=== PATIENT | female | born 1985 | race Two or more races ===

== ENCOUNTER 2016-12-24 15:58 | Observation (INO) | payer BC ==
--- NOTE | 2016-12-24 16:08 | ER Document Report ---
ED Medical Screen (RME) - General Stated Complaint: ABDOMINAL PAIN/PHYSICIAN REFERRED Mode of Arrival: Ambulatory Information source: Patient Notes: Patient reports abdominal pain that has migrated in location, but has been constant for the past 3 days. Patient reports nausea and vomiting yesterday but none today. Patient reports subjective fever yesterday. Patient had a negative flu test as well as urinalysis at her doctor's office earlier today. hx: Kidney stones I have greeted and performed a rapid initial assessment of this patient. A comprehensive ED assessment and evaluation of the patient, analysis of test results and completion of the medical decision making process will be conducted by additional ED providers. - Related Data Allergies/Adverse Reactions: No Known Allergies Allergy (Verified 12/24/16 16:05) Past Medical History Renal/ Medical History: Reports: Hx Kidney Stones - Immunizations Immunizations up to date: Yes Hx Diphtheria, Pertussis, Tetanus Vaccination: Yes Physical Exam - Vital signs Vitals: Temp Pulse Resp BP Pulse Ox 98.4 F 106 H 16 142/91 H 98 12/24/16 16:02 12/24/16 16:02 12/24/16 16:02 12/24/16 16:02 12/24/16 16:02 - Abdominal Tenderness: Tender - Lower abdomen Course - Vital Signs Vital signs: Temp Pulse Resp BP Pulse Ox 98.4 F 106 H 16 142/91 H 98 12/24/16 16:02 12/24/16 16:02 12/24/16 16:02 12/24/16 16:02 12/24/16 16:02
[2016-12-24 16:37] LABS: ABSOLUTE BASOPHILS # (AUTO) 0.1 10^3/uL (0.0-0.2); ABSOLUTE LYMPHOCYTES (AUTO) 2.2 10^3/uL (0.5-4.7); ABSOLUTE MONOCYTES (AUTO) 1.1 10^3/uL (0.1-1.4); ABSOLUTE NEUT (AUTO) 14.4 10^3/uL (1.7-8.2); BASOPHILS % (AUTO) 0.8 % (0-2); EOSINOPHILS % (AUTO) 0.1 % (0-6); HEMATOCRIT 43.5 % (36.0-47.0); HEMOGLOBIN 14.3 g/dL (12.0-15.5); HGB HCT DIFFERENCE -0.6; LYMPHOCYTES % (AUTO) 12.4 % (13-45); MEAN CORPUSCULAR HEMOGLOBIN 26.1 pg (27.0-33.4); MEAN CORPUSCULAR HGB CONC 32.9 g/dL (32.0-36.0); MEAN CORPUSCULAR VOLUME 79 fl (80-97); MONOCYTES % (AUTO) 6.3 % (3-13); SEGMENTED NEUTROPHILS % (AUTO) 80.4 % (42-78)
[2016-12-24 16:52] LABS: ALANINE AMINOTRANSFERASE 33 U/L (9-52); ALBUMIN 4.5 g/dL (3.5-5.0); ALKALINE PHOSPHATASE 117 U/L (38-126); ANION GAP 14 (5-19); ASPARTATE AMINO TRANSFERASE 17 U/L (14-36); BILIRUBIN,TOTAL 0.6 mg/dL (0.2-1.3); BLOOD UREA NITROGEN 13 mg/dL (7-20); CALCIUM 10.1 mg/dL (8.4-10.2); CARBON DIOXIDE 25 mmol/L (22-30); CHLORIDE 101 mmol/L (98-107); GLUCOSE 110 mg/dL (75-110); LIPASE 42.6 U/L (23-300); SODIUM 140.3 mmol/L (137-145); TOTAL PROTEIN 8.2 g/dL (6.3-8.2)
[2016-12-24 17:04] LABS: APPEARANCE,URINE CLEAR; BILIRUBIN,URINE NEGATIVE (NEGATIVE); GLUCOSE, URINE NEGATIVE (NEGATIVE); KETONES,URINE NEGATIVE (NEGATIVE); URINE SPECIFIC GRAVITY 1.021
[2016-12-24 17:05] LABS: LEUKOCYTE ESTERASE,URINE NEGATIVE (NEGATIVE); NITRITE,URINE NEGATIVE (NEGATIVE); PROTEIN,URINE 30 mg/dL (NEGATIVE); UROBILINOGEN,URINE NEGATIVE mg/dL (<2.0)
[2016-12-24 17:06] LABS: BACTERIA,URINE 1+ /HPF
[2016-12-24] MEDS ORDERED: NORMAL SALINE 1000 ML 1,000 ML IV ONE (19:24)
[2016-12-24] MEDS ORDERED: ONDANSETRON HCL INJ/PF 4 MG/2 ML SDV IV ONE (19:25)
[2016-12-24] MEDS ORDERED: MORPHINE SULFATE 10 MG/ML INJ IV ONE (19:25)
--- NOTE | 2016-12-24 19:30 | ER Document Report ---
ED GI/ - General Chief Complaint: Abdominal Pain Stated Complaint: ABDOMINAL PAIN/PHYSICIAN REFERRED Mode of Arrival: Ambulatory Notes: Patient is a 31-year-old female that comes emergency department for chief complaint of abdominal pain in her lower right abdomen, she states that she began to have symptoms 3 days ago where she was feeling pains in her abdomen, she states that 2 nights ago she began to vomit, she states that since yesterday she has had progressively worsening abdominal pain and now it hurts to walk. She is also not moved her bowels for 3 days. She states that 2 days ago she had fever/chills in bed. She denies flank pain, dysuria, vaginal discharge or bleeding. Patient was evaluated by urgent care, had an elevated white blood cell count, negative flu test, unremarkable urinalysis and was sent to the emergency department. Past medical history of 2 C-sections and kidney stones. TRAVEL OUTSIDE OF THE [place] IN LAST 30 DAYS: No - Related Data Allergies/Adverse Reactions: No Known Allergies Allergy (Verified 12/24/16 16:05) Past Medical History - General Information source: Patient - Social History Smoking Status: Never Smoker Chew tobacco use (# tins/day): No Frequency of alcohol use: None Drug Abuse: None Lives with: Family Family History: Reviewed & Not Pertinent Patient has suicidal ideation: No Patient has homicidal ideation: No Renal/ Medical History: Reports: Hx Kidney Stones. Denies: Hx Peritoneal Dialysis Past Surgical History: Reports: Hx Section - Immunizations Immunizations up to date: Yes Hx Diphtheria, Pertussis, Tetanus Vaccination: Yes Review of Systems - Review of Systems Constitutional: See HPI EENT: No symptoms reported Cardiovascular: No symptoms reported Respiratory: No symptoms reported Gastrointestinal: See HPI Genitourinary: No symptoms reported Female Genitourinary: No symptoms reported Musculoskeletal: No symptoms reported Skin: No symptoms reported Hematologic/Lymphatic: No symptoms reported Neurological/Psychological: No symptoms reported Physical Exam - Vital signs Vitals: Temp Pulse Resp BP Pulse Ox 98.4 F 106 H 16 142/91 H 98 12/24/16 16:02 12/24/16 16:02 12/24/16 16:02 12/24/16 16:02 12/24/16 16:02 Interpretation: Normal - General General appearance: Appears well, Alert In distress: None - HEENT Head: Normocephalic, Atraumatic Eyes: Normal Extraocular movements intact: Yes Eyelashes: Normal Pupils: PERRL Nasal: Normal Mouth/Lips: Normal Mucous membranes: Normal Pharynx: Normal Neck: Normal - Respiratory Respiratory status: No respiratory distress Chest status: Nontender Breath sounds: Normal. No: Decreased air movement, Wheezing Chest palpation: Normal - Cardiovascular Rhythm: Regular. No: Tachycardia Heart sounds: Normal auscultation, S1 appreciated, S2 appreciated Murmur: No - Abdominal Inspection: Normal Distension: No distension Bowel sounds: Normal Tenderness: Tender - Patient with very mild mid to right abdominal tenderness, significantly tender in the right lower quadrant with guarding at McBurney's point, completely soft and benign left upper and lower abdomen. No rebound tenderness., McBurney's point Organomegaly: No organomegaly - Back Back: Normal, Nontender. No: Tender - Extremities General upper extremity: Normal inspection, Nontender, Normal ROM, Normal strength General lower extremity: Normal inspection, Nontender, Normal ROM, Normal strength - Neurological Neuro grossly intact: Yes Cognition: Normal Orientation: AAOx4 Awais Coma Scale Eye Opening: Spontaneous Awais Coma Scale Verbal: Oriented Awais Coma Scale Motor: Obeys Commands Awais Coma Scale Total: 15 Speech: Normal Cranial nerves: Normal Cerebellar coordination: Normal Motor strength normal: LUE, RUE, LLE, RLE Additional motor exam normals: Equal fashion intern Sensory: Normal - Psychological Associated symptoms: Normal affect, Normal mood - Skin Skin Temperature: Warm Skin Moisture: Dry Skin Color: Normal Course - Re-evaluation Re-evalutation: Leukocytosis at greater than 18,000 with elevated neutrophils. Timeline is somewhat questionable but patient definitely has right lower quadrant tenderness on examination. History reporting worsening pain over the past 2 days, patient states she has not eaten anything today because of no appetite. Chemistry unremarkable, urine nonspecific. Rehydrating, after discussion CT of the abdomen and pelvis will be performed. Patient medicated, hydrated. Discussed with Dr. Lawson per [facility] guidelines. CT consistent with acute appendicitis, patient has been kept nothing by mouth, giving IV Unasyn. Patient has more comfortable after pain medicine, no diffuse severe tenderness suggesting perforation. 12/24/16 22:[address] Granados, patient will be admitted for acute appendicitis. - Vital Signs Vital signs: Temp Pulse Resp BP Pulse Ox 98.4 F 106 H 16 142/91 H 98 12/24/16 16:02 12/24/16 16:02 12/24/16 16:02 12/24/16 16:02 12/24/16 16:02 - Laboratory Result Diagrams: 12/24/16 16:13 12/24/16 16:13 Laboratory results interpreted by me: 12/24/16 12/24/16 12/24/16 16:13 16:13 16:13 WBC 18.0 H RBC 5.50 H MCV 79 L MCH 26.1 L Seg Neutrophils % 80.4 H Lymphocytes % 12.4 L Absolute Neutrophils 14.4 H Creatinine 0.50 L Urine Protein 30 H Urine Blood SMALL H Discharge - Discharge Clinical Impression: Right lower quadrant pain Acute appendicitis Qualifiers: Acute appendicitis type: with localized peritonitis Qualified Code(s): K35.3 - Acute appendicitis with localized peritonitis Condition: Stable Disposition: ADMITTED INPATIENT Admitting Provider: Surgicalist Unit Admitted: Surgical Floor
[2016-12-24] MEDS ORDERED: NORMAL SALINE 1000 ML 1,000 ML IV PRN (22:55)
[2016-12-24] MEDS ORDERED: AMPICILLIN SOD/SULBACTAM 3 GM VIAL IV ONE (22:55)
[2016-12-25] MEDS ORDERED: HYDROMORPHONE HCL INJ/PF 2 MG/ML AMPULE ONE (01:27)
[2016-12-25] MEDS ORDERED: PROPOFOL INJ 200 MG/20 ML VIAL IV ONE (01:28)
[2016-12-25] MEDS ORDERED: ACETAMINOPHEN 100 ML IV ONE (01:28)
[2016-12-25] MEDS ORDERED: FENTANYL CITRATE INJ/PF 100 MCG/2 ML AMPUL ONE (01:28)
[2016-12-25] MEDS ORDERED: MIDAZOLAM 2 MG/2 ML INJ ONE (01:28)
[2016-12-25] MEDS ORDERED: BUPIVACAINE HCL 0.25 % INJ/PF (2.5 MG/1 ML) 30 ML VIAL ONE (01:54)
[2016-12-25] MEDS ORDERED: BUPIVACAINE HCL 0.25 % INJ/PF (2.5 MG/1 ML) 30 ML VIAL INJ ONE (02:00)
[2016-12-25] MEDS ORDERED: PROMETHAZINE HCL INJ 25 MG/1 ML VIAL IV PRN ×2 (02:24)
[2016-12-25] MEDS ORDERED: MEPERIDINE HCL/PF INJ 25 MG/1 ML DISP.SYRIN IV PRN (02:24)
[2016-12-25] MEDS ORDERED: OXYCODONE-ACETAMINOPHEN 5-325 MG TABLET PO PRN ×2 (02:24)
[2016-12-25] MEDS ORDERED: FENTANYL CITRATE INJ/PF 100 MCG/2 ML AMPUL IV PRN ×3 (02:24)
[2016-12-25] MEDS ORDERED: DIPHENHYDRAMINE HCL 50 MG/ML VIAL IV PRN (02:24)
[2016-12-25] MEDS ORDERED: MORPHINE SULFATE 10 MG/ML INJ IV PRN (02:24)
[2016-12-25] MEDS ORDERED: ONDANSETRON HCL INJ/PF 4 MG/2 ML SDV IV PRN ×2 (02:24→03:31)
--- NOTE | 2016-12-25 02:33 | HISTORY AND PHYSICAL E ---
History and Physical NAME: NIKITA NEGRETE : 1985 AGE: 31Y ADMITTED: 12/24/2016 ROOM: ED15 HISTORY OF PRESENT ILLNESS: A 31-year-old very pleasant female patient presenting to emergency room with a history of abdominal pain about 3 days and nausea. She never had this kind of pain before. No urinary symptoms. PAST MEDICAL HISTORY: None. PAST SURGICAL HISTORY: She had 2 C-sections. FAMILY HISTORY: Nothing relevant. PERSONAL HISTORY: Lives with the family and 2 children. SOCIAL HISTORY: She is not a smoker. No alcohol usage. REVIEW OF SYSTEMS: As per examination. PHYSICAL EXAMINATION: GENERAL: Examination reich, she is mildly dehydrated, no icterus. HEENT: No lymphadenopathy, no masses, no thyromegaly. RESPIRATORY: Breathing comfortably. Both lungs, good air entry. No crepitations. CARDIOVASCULAR: Both sounds are regular. No murmurs or gallops. Abdomen: Soft abdomen. She does have tender in the right lower quadrant area. No rebound and no mass palpable. No hernia. EXTREMITIES: Warm and well perfused. NEUROLOGICAL: No sensory or focal deficits. No motor deficits. DIAGNOSTICS: I reviewed her CT scan of abdominal and pelvis with inflamed thick appendix. White count is about 18,000. IMPRESSION: Overall acute appendicitis. PLAN: Intravenous antibiotic started. We will plan for emergency laparoscopic appendectomy. I spent about 45 minutes of detailed examination, evaluation, going through all the CT scan, and then discussion with manager placement of the patient. I spent overall 40 minutes of detailed emergency room consultation and also history and physical. DICTATING PHYSICIAN: DANGELO RAMOS M.D. [id number] TAL#: [id number] ID: [id number] JOB#: [id number] ACCT: [id number] cc: > MTDD
[2016-12-25] MEDS ORDERED: PIPERACILLIN/TAZOBACTAM 3.375 GM VIAL IV SCH (03:00)
[2016-12-25] MEDS ORDERED: PIPERACILLIN SODIUM/TAZOBACTAM 3.375 GM in NORMAL SALINE 100 ML IV SCH (03:00)
[2016-12-25] MEDS ORDERED: PIPERACILLIN/TAZOBACTAM 3.375 GM VIAL IV ONE (03:02)
[2016-12-25] MEDS ORDERED: POTASSI CL 20 MEQ/D5-1/2NS 1L 1000 ML IV PRN (03:29)
[2016-12-25] MEDS ORDERED: HYDROMORPHONE HCL INJ/PF 2 MG/ML AMPULE IV PRN (03:30)
--- NOTE | 2016-12-25 03:53 | OPERATIVE REPORT E ---
Operative Report NAME: NIKITA NEGRETE : 1985 AGE: 31Y DATE OF SURGERY: 12/15/2016 ROOM: ED15 PREOPERATIVE DIAGNOSIS: A 31-year-old female patient with preoperative diagnosis of acute appendicitis. POSTOPERATIVE DIAGNOSIS: 1. Acute appendicitis. 2. Retrocecal appendix with a phlegmon along with a washout. OPERATION: Laparoscopic appendectomy. SURGEON: DANGELO RAMOS M.D. ANESTHESIA: General. BLOOD LOSS: Less than 30 mL. TISSUE REMOVED OR ALTERED: Appendix. INDICATIONS: Patient presented to the emergency room with acute abdominal pain, tenderness in the right lower quadrant area. CT scan revealed appendicitis with retrocecal inflammation and white count of 15,000. She needed appendectomy. She was prepared and taken to the operating room with informed consent. DESCRIPTION OF OPERATION: The patient in the supine position with CD boots. The patient was given antibiotics. The abdomen was cleaned and draped for sterile field. Initial access from a 1 cm umbilical incision was made and a 12 mm trocar inserted. Under laparoscopic visualization, a 5 mm trocar was inserted the suprapubic area and the left lower abdomen. Findings: The appendix was rather retrocecal, phlegmonous. The serous fluid in the pelvis and parasacral area was drained out and the appendix was mobilized carefully after immobilizing the cecum. The mesoappendix was divided by using Enseal device with complete hemostasis. The appendix was dissected out to the level of the base, close to the cecum. The appendix was divided by using a #45 stapler. Stapler points were perfectly healthy, were vascularized, no bleeding. Another . The abdominal cavity, pelvic cavity, and pericolic gutters were irrigated and suctioned out, completely hemostatic. All the trocars were removed. All pneumoperitoneum cleared. The fascia was closed using 0-Vicryl for the fascia, 3-0 Monocryl for the skin. The patient was awakened and transferred in stable condition. DICTATING PHYSICIAN: DANGELO RAMOS M.D. [id number] PHY#: [id number] ID: [id number] JOB#: [id number] ACCT: [id number] cc:DANGELO RAMOS M.D. > [facility]
[2016-12-25] MEDS: OXYCODONE HCL IR 5 MG TABLET PO PRN ×2 (05:06→11:41)
[2016-12-25] MEDS: ACETAMINOPHEN 325 MG TABLET PO PRN ×2 (06:56→11:40)
[2016-12-25] MEDS ORDERED: ROCURONIUM BROMIDE INJ 50 MG/5 ML VIAL IV ONE (08:14)
[2016-12-25] MEDS ORDERED: KETOROLAC TROMETHAMINE 60 MG/2 ML SDV ONE (08:14)
[2016-12-25] MEDS ORDERED: METOCLOPRAMIDE HCL INJ/PF 10 MG/2 ML SDV ONE (08:14)
[2016-12-25] MEDS ORDERED: GLYCOPYRROLATE INJ 0.4 MG/2 ML VIAL ONE (08:14)
[2016-12-25] MEDS ORDERED: LIDOCAINE 2% INJ-PF (20 MG/ML) 10 ML AMPUL ONE (08:14)
[2016-12-25] MEDS ORDERED: ONDANSETRON HCL INJ/PF 4 MG/2 ML SDV ONE (08:14)
[2016-12-25] MEDS ORDERED: DEXAMETHASONE SOD PHOSPHATE INJ 4 MG/1 ML VIAL ONE (08:14)
[2016-12-25] MEDS ORDERED: NEOSTIGMINE METHYLSULFATE 10 MG/10 ML VIAL ONE (08:14)
[2016-12-25] MEDS ORDERED: SUCCINYLCHOLINE CHLORIDE INJ 200 MG/10 ML VIAL ONE (08:14)
[2016-12-25] MEDS: PIPERACILLIN SODIUM/TAZOBACTAM 3.375 GM in NORMAL SALINE 100 ML IV SCH ×2 (10:27→18:39)
--- NOTE | 2016-12-25 13:28 | DISCHARGE SUMMARY E ---
Discharge Summary NAME: NIKITA NEGRETE : 1985 AGE: 31Y ADMITTED: 12/24/2016 DISCHARGED: 12/25/2016 ADMITTING DIAGNOSIS: Acute appendicitis. DISCHARGE DIAGNOSIS: Acute appendicitis. OPERATIVE PROCEDURE: Laparoscopic appendectomy late last night. HOSPITAL COURSE: Patient relatively feeling very well. Pain is under control. Afebrile. Tolerating diet. We will discharge her home today with pain medication, hydrocodone, and stool softeners. FOLLOWUP PLAN: Outpatient in 2 weeks. DICTATING PHYSICIAN: DANGELO RAMOS M.D. [id number] PHY#: [id number] ID: [id number] JOB#: [id number] ACCT: [id number] cc:DANGELO RAMOS M.D., IVAN PA >
[2016-12-25 17:16] VITALS: BP 138/81
== END 2016-12-25 18:00 | disposition home or self-care (01) ==
LOC: ER 15:58 → INTOOBSV 23:10 → EH 23:10 → 4S 12-25 04:10
PROC: 0DTJ4ZZ Resection of Appendix, Percutaneous Endoscopic Approach (ICD-10-PCS; principal; 2016-12-24)
PROC: 3E033GC Introduction of Other Therapeutic Substance into Peripheral Vein, Percutaneous Approach (ICD-10-PCS; 2016-12-24)
PROC: 3E033GC Introduction of Other Therapeutic Substance into Peripheral Vein, Percutaneous Approach (ICD-10-PCS; 2016-12-24)
DX: K35.3 Acute appendicitis with localized peritonitis (principal)
CPT/HCPCS: 99285; 96374; 96375; 36415; 83690; 85025; 81025; 80053; 81001; 88304 ×2; 74177; 94799; 44970; G0378 ×2; J2250; J3490 ×2; J1100; J1885; J3010; J0295; J2765; J2270; J1170; J3480; J0330; J2405 ×2; J7030; J2704; J2543; J0131; 840